=== PATIENT | female | born 1965 | race Caucasian/White ===

== ENCOUNTER 2016-10-01 10:51 | Day surgery (SDC) | payer MEDICAID ==
[~2016-10-01 10:51] MED LIST: RINGER'S SOLUTION,LACTATED 1,000 ML IV PRN; ceFAZolin SODIUM 2 GM in DEXTROSE 5 % IN WATER 50 ML IV PRN
--- OUTSIDE RECORDS SUMMARY | 2016-10-01 10:58 | XMS REPORT | Continuity of Care Document ---
:1965 Author Organization [facility] ([facility]) Address [address] [place] [address] Phone [phone] Care Team Providers Name Role Phone Abdullahi Gracia Primary Care Provider [phone] Source Comments This disclosure is being made pursuant to the Care Everywhere program, applicable federal and state laws, and may not contain all informaitonavailable regarding this patient.[facility] ([facility]) Active Allergies and Adverse Reactions No Known Allergies Current Medications Prescription Sig. Disp. Refills Start Date End Date Status DULoxetine 60 mg XR Take 60 mg by mouth Active capsule daily diphenhydrAMINE 25 mg Take 25 mg by mouth Active capsule as needed (takes when she goes in for infusions). ondansetron 4 mg Take 4 mg by mouth Active tablet every 4 hours as needed. cholecalciferol Take 1,000 Units by Active (VITAMIN D3) 1,000 mouth daily unit tablet folic acid 400 mcg Take 400 mg by Active tablet mouth daily baclofen 20 mg tablet Take 20 mg by mouth Active 4 times daily. diazepam 10 mg tablet Take 10 mg by mouth Active at bedtime. multivitamin tablet Take 1 Tab by mouth Active daily oxybutynin 5 mg Take 5 mg by mouth 04/13/2016 Active tablet daily. fentanyl 25 mcg/hr Apply 25 mcg on the 04/13/2016 Active patch skin every 72 hours. polyethylene glycol Take 17 g by mouth Active 3350 17 gram packet daily. morpHINE concentrated Take 5 mg by mouth Active 20 mg/mL solution every 2 hours as needed. sennoside-docusate Take 1 tablet by Active sodium 8.6-50 mg per mouth 2 times tablet daily. polyvinyl alcohol 1.4 Instill 2 Drops Active % ophthalmic solution onto both eyes 4 times daily as needed. magnesium hydroxide Take 30 mL by mouth Active (MILK OF MAGNESIA) 80 4 times daily as mg/mL suspension needed. acetaminophen 325 mg Take 650 mg by Active tablet mouth as needed (for fever). albuterol 2.5 mg/3 mL Use 3 mL by Active inhalation solution inhalation every 4 hours as needed. NATALIZUMAB (TYSABRI Inject Active IV) intravenously as instructed. HYDROmorphone 2 mg Take 1-2 tablets 30 tablet 0 05/26/2016 Active tablet (2-4 mg total) by mouth every 4 hours as needed (When Able to take Oral). mouth moisturizer Take 1 [place] by Active moisturizing mouth mouth as needed. spray levoFLOXacin 750 mg Take 750 mg by Active tablet mouth daily. bisacodyl 10 mg Insert 10 mg Active suppository rectally daily as needed. buPROPion Take 150 mg by 07/19/2016 Active (WELLBUTRIN-SR) 150 mouth 2 times mg SR tablet 12 hour daily. Active Problems Patient Care Coordination Note This is a patient with relatively advacned multiple sclerosis (wheelchair bound , lives in a care facility) who is s/p PCN w/ lithotripsy for staghorn calculus. She did well overnight, so we will planto clamp the nephrostomy tube today and repeat a CT scan. She can likleyi discharge to the floor. Will continue antiibotics at the discretion of the primary service Problem Noted Date Chronic pain 05/25/2016 Last Assessment & Plan: -contnue home fentanyl patch Acute blood loss anemia 05/25/2016 Last Assessment & Plan: -no indication for transfusion Hypokalemia 05/25/2016 Last Assessment & Plan: -replace prn Inadequate oral intake 05/24/2016 Last Assessment & Plan: -reports that she does NOT receive tube feeds at home - all nutrition is via mouth Secondary adrenal insufficiency 05/24/2016 Last Assessment & Plan: -presumptive diagnosis; she has not had hypotension or signs of neurologic worsening overnight without giving further steroids, so no need to continue these at all. Discharge planning issues 05/24/2016 Last Assessment & Plan: -full code -to floor today -anticiapte ultimate discharge back to the care facility she came from -family updated at bedside by myself -[facility] can start today Depression 05/24/2016 Last Assessment & Plan: -Continue home antidepressants SUKUMAR (obstructive sleep apnea) 05/24/2016 Last Assessment & Plan: Patient reports using CPAP at home, but it was not placed on her last night and she apparently did well without it Nephrolithiasis 04/25/2016 Last Assessment & Plan: -s/p PCN w/ perc lithotripsy. apparnetly uncomplicated procedure. CT and clamping of nephrostomy tube tioday -zosyn for treatment (widely sensitive pseudomonas) Bladder stones 04/25/2016 Neurogenic bladder 04/25/2016 Last Assessment & Plan: -continue oxybutynin -keep suprapubic catheter to straight drain Recurrent UTI 04/25/2016 Multiple sclerosis, relapsing-remitting 11/26/2014 Last Assessment & Plan: -difficulties with communication at baseline; requires a lift and signifiant assistance with mobilization -home baclofen and other meds can continue -avoid hyperthermia Most Recent Encounters Date Type Specialty Providers Description 08/08/2016 Office Visit Urology Caleb Trejo MD Dx: Kidney stone (Primary Bushra López PA-C Dx) 07/23/2016 Office Visit Pathology Caleb Trejo MD Dx: Kidney stone (Primary [facility] Dx) 07/22/2016 Office Visit Pathology Caleb Trejo MD Dx: Kidney stone ([facility] Dx) 07/17/2016 Telephone Urology Caleb Trejo MD Chief Comp: Orders (to arrange test locally) Immunizations Name Dates Previously Given Next Due Novel Influenza H1N1 07/20/2009 Tdap 01/01/2008,07/08/2007 Social History Tobacco Use Types Packs/Day Years Used Date Former Smoker Cigarettes 1 5 Quit: 07/08/2009 Smokeless Tobacco: Never Used Tobacco Cessation:Counseling Given: Yes Comments: Alcohol Use Drinks/Week oz/Week Comments No Last Filed Vital Signs Vital Sign Reading Time Taken Blood Pressure 96/64 08/08/2016 10:39 AM RAM CAR OPERATOR Pulse 80 08/08/2016 10:39 AM RAM CAR OPERATOR Temperature 36.7 C (98.1 F) 08/08/2016 10:39 AM RAM CAR OPERATOR Respiratory Rate 16 05/27/2016 8:00 AM RAM CAR OPERATOR Height 1.575 m (5' 2") 05/24/2016 12:08 PM RAM CAR OPERATOR Weight 70.308 kg (155 lb) 05/24/2016 12:08 PM RAM CAR OPERATOR Body Mass Index 28.34 05/24/2016 12:08 PM RAM CAR OPERATOR Oxygen Saturation 93% 05/27/2016 12:15 AM RAM CAR OPERATOR Plan of Care Date Type Specialty Providers Description 11/14/2016 Appointment Urology Caleb Trejo MD [address] [place] [address] [phone] (Fax) Chief Comp: Patient Bushra López YUVAL [address] [place] [address] [phone] (Fax) Reported Reason For Visit Health Maintenance Due Date Last Done Comments Hepatitis B Vaccine (1 of 3 - Primary 1966 Series) Lipid Disorder Screening 1984 MMR Vaccine 1984 Cervical Cancer Screening 1996 Mammogram 2006 Influenza Vaccine: Seasonal (#1) 02/06/2016 Td Vaccine 12/31/2017 01/01/2008, 07/08/2007 Tdap Vaccine Completed 01/01/2008, 07/08/2007 Results from Last 3 Months STONE, URINE (07/23/2016 8:05 AM)Only the most recent of2 resultswithin the time period is included. Component Value Range Volume, Stone 0.74 0.50-4.00 L/D Supersat CaOxalate 6.72 6-10 Calcium, Stone, Urine 88 <200 mg/24H Oxalate, Urine, Stone 18(L)Comment:*The urine Ox result was 20-40 mg/24H verified by repeat analysis. Citrate, Stone, Urine 120(L) >550 mg/d Supersat CaPO4 2.89(H) 0.5-2 pH, Urine, Stone 6.921(H) 5.8-6.2 Supersat. Uric Acid 0.18 0-1 Uric Acid, Urine, Stone 0.459 <0.750 g/d Sodium, Urine, Stone 57 50-150 mmol/d Potassium, Urine, Stone 28 20-100 mmol/d Magnesium, Urine, Stone 74 30-120 mg/d Phosphorus, Urine, Stone 0.415(L) 0.6-1.2 g/d Ammonia, Urine, Stone 40 15-60 mmol/d Chloride, Stone, Urine 64(L) 70-250 mEq/d Sulfate, Urine, Stone 13(L) 20-80 mEq/d Urea Nitrogen, Stone 2.77(L) 6-14 g/d Protein Catabolic Rate 0.4(L) 0.8-1.4 g/kg/d Body Weight - Kg 69.9 kg Creatinine, Urine, Stone 540 mg/d Creat/Kg Body Weight 7.7(L) 15-20 mg/kg Ca/Kg Body Wt 1.3 <4 mg/kg Ca/Creatinine 163(H) <140 mg/g Cystine Screening Negative Negative Cystine Date 07/27/2016 Specimen Urine
[2016-10-01] MEDS ORDERED: HEPARIN SOD.,PORCINE 100 UNITS/ML IV ONE (13:08)
[2016-10-01] MEDS ORDERED: RINGER'S SOLUTION,LACTATED 1,000 ML IV ONE (13:09)
[2016-10-01] MEDS ORDERED: BUPIVACAINE HCL/EPINEPHRINE 50 ML VIAL IJ ONE ×2 (13:09)
[2016-10-01] MEDS ORDERED: RINGER'S SOLUTION,LACTATED 1,000 ML IV PRN (13:52)
[2016-10-01] MEDS ORDERED: oxyCODONE HCL/ACETAMINOPHEN 1 TAB TABLET PO ONE (13:52)
[2016-10-01 15:00] VITALS: BP 114/74
--- NOTE | 2016-10-01 17:37 | OR ---
Operative Report - Dictated Report Narrative: OPERATIVE REPORT DATE OF OPERATION: 10/01/2016 PREOPERATIVE DIAGNOSIS: Lack of venous access POSTOPERATIVE DIAGNOSIS: Same OPERATION: Insertion left subclavian vein buried infusion port (power injection compatible) SURGEON: Morales Pascal MD ANESTHESIA: MAC/local Ismael Arboleda CRNA INDICATIONS FOR PROCEDURE: The patient is a 51-year-old female with advanced MS. She has poor peripheral venous access with need for long-term venous access. FINDINGS: Successful placement of power injection compatible left subclavian vein buried infusion port NARRATIVE OF PROCEDURE: The patient was identified in the holding area and prior to the administration of anesthetic a multidisciplinary timeout was observed. The patient was placed supine with a rolled towel between the shoulders, intravenous sedation was administered and intravenous Ancef administered. The patient's neck and upper chest were prepped with Betadine solution and a generous operating field outlined with 4 sterile towels to allow access to both clavicular areas. The remainder the patient was covered with a sterile disposable drape. The skin, subcutaneous tissue, and periosteum the left clavicle were anesthetized with 0.5% Marcaine with epinephrine. The left subclavian vein was then accessed percutaneously. A guidewire was placed followed by vein dilator with a peel-away sheath. A previously flushed catheter was then threaded into the superior vena cava under fluoroscopic guidance. It was clamped and laid aside. A projected pocket site on the left upper chest was then anesthetized with injected 0.5% Marcaine with epinephrine. A short skin incision was made and dissection carried into subcutaneous tissue with electrocautery until the fascia of the pectoralis muscle was encountered. A port pocket was then created by blunt dissection. The area appeared hemostatic. The tubing was then passed to the port site with the tunneling device, trimmed, and attached to a previously flushed buried infusion port. The port was accessed and flushed easily. The port was then placed in the port pocket and secured with a suture of 3-0 chromic. After receiving a correct sponge needle and instrument count attention was turned to closing the wound. Subcutaneous tissue was then approximated with interrupted sutures of 3- 0 chromic. Skin incisions were approximated with subcuticular Vicryl. The operative sites were washed and dried. Exofin was applied to the incisions. A dressing of Mepilex border was applied. The operative procedure was terminated at this point. The patient tolerated the anesthetic and procedure well without complication. There was no measurable blood loss. She was transferred briefly to the recovery room where a chest x-ray revealed good placement of the port with no evidence of pneumothorax. Patient was then transferred back to the ambulatory surgery area awake and in stable condition. The patient remained stable throughout a period of postoperative observation. She denied discomfort and was able to tolerate PO intake. Shared the operative findings with her and her family. They were given a packet with device information for future reference. She was discharged back to [facility] with instructions to keep the current dressing dry for 48 hours but she may then shower and change the dressing daily or as needed. She has an appointment in the [facility] on 10/19/2016. Reviewed and electronically signed
== END 2016-10-01 10:52 | disposition home or self-care (01) ==
LOC: AMB 10:51
PROVIDERS: ATTEND Surgery
PROC: 0JHF3XZ Insertion of Tunneled Vascular Access Device into Left Upper Arm Subcutaneous Tissue and Fascia, Percutaneous Approach (ICD-10-PCS; principal; 2016-10-01 12:30)
DX: Z79.899 Other long term (current) drug therapy (principal); G35 Multiple sclerosis; N31.9 Neuromuscular dysfunction of bladder, unspecified; F32.9 Major depressive disorder, single episode, unspecified; Z87.891 Personal history of nicotine dependence; Z68.28 Body mass index [BMI] 28.0-28.9, adult